=== PATIENT | female | born 1990 | race Caucasian/White ===

== ENCOUNTER 2022-10-07 19:00 | Emergency (ER) | payer OTHER, SELFPAY ==
[2022-10-07 19:07] VITALS: BP 137/73; PULSE 78; RESP 18; TEMP 36.9; O2SAT 97; BMI 32.1
--- NOTE | 2022-10-07 19:52 | CT_ITS ---
The [address] [address] Patient Name: KASSIE HEATON MRN: [id number] date: 1990 Sex: F Assigned Patient Location: ER Current Patient Location: Accession/Order Number: [id number] Exam Date: 10/07/2022 20:45 Report Date: 10/07/2022 21:17 At the request of: MIRI MARKER Procedure: CT abdomen pelvis w con HISTORY: Diarrhea, abdominal pain COMPARISON: None TECHNIQUE: CT Abdomen/Pelvis was performed with IV contrast. There was no immediate contrast reaction. Coronal and sagittal reformatted images were obtained. FINDINGS: Evaluation of the lung bases demonstrates no pneumothorax, pleural effusion, or focal consolidation. Mild dependent atelectasis. The visualized portions of the heart are unremarkable. Evaluation of the liver demonstrates no suspicious hepatic mass lesion. There is no intrahepatic biliary ductal dilation. Hepatic and portal veins are patent. The gallbladder is unremarkable. The common bile duct is normal in course and caliber. The spleen is normal. The pancreas demonstrates homogeneous parenchymal enhancement without evidence of ductal dilation or adjacent inflammatory change. The adrenal glands demonstrate no suspicious nodularity or mass lesion. The kidneys demonstrate symmetric nephrograms. There are 5 mm hypodensities in both kidneys, too small to fully characterize but likely represent renal cysts. There is no hydronephrosis. The ureters appear normal in course and caliber. The bladder is partially distended and otherwise unremarkable. Evaluation of the bowel demonstrates no obstruction or free air. The appendix and terminal ileum are normal. There is no focal bowel wall thickening. There is no significant free fluid within the abdomen or pelvis. There is an intrauterine device within the uterus. Both ovaries are within normal limits. Scattered colonic diverticuli. There is no mesenteric or retroperitoneal lymphadenopathy. The aorta and its branching vessels are within normal limits without evidence for aneurysm. There is no suspicious lytic or sclerotic bony lesion. Fat-containing umbilical hernia. Impression: No acute abdominal or pelvic findings. No free fluid. No inflammatory stranding. No bowel obstruction. Normal appendix. Scattered colonic diverticuli with no evidence for diverticulitis. Electronically authenticated by: ROGER NATHAN Date: 10/07/2022 21:17
--- NOTE | 2022-10-07 19:54 | ED_ITS ---
HPI - Abdominal Pain General Chief Complaint: Abdominal Pain Stated Complaint: DIARRHEA Time Seen by Provider: 10/07/22 19:43 Source: patient Mode of arrival: walk-in Limitations: no limitations History of Present Illness HPI narrative: This 32-year-old female presents for evaluation of diarrhea that started on Tuesday, 3 days ago as well as abdominal cramps. She is episodes of nausea but has not vomited. She has not had a fever. She states that Tuesday she had a lot of diarrhea all day and then on Tuesday it started to resolve, Tuesday she had cramps and diarrhea again and today she has had diarrhea with cramping and is no longer having diarrhea but is passing mucous with blood in it. She has not had a fever. She has not recently been on any antibiotics. She has not had a lot of the country. She has not been eating raw seafood or fishing and strains. She denies any chest pain or shortness of breath. She denies any urinary symptoms. She states the pain at times radiates into her low back. She did have a colonoscopy last December and had a benign polyp removed. MD elicited complaint: Reports abdominal pain Related Data Home Medications Medication Instructions Recorded Confirmed No Known Home Medications 10/07/22 10/07/22 Allergies Allergy/AdvReac Type Severity Reaction Status Date / Time acetaminophen [From Vicodin] Allergy Rash Verified 10/07/22 19:13 hydrocodone [From Vicodin] Allergy Rash Verified 10/07/22 19:13 Review of Systems ROS Status of ROS 10 or more systems reviewed and unremarkable except as noted in history and below [facility] Social History Smoking status: Current every day smoker Exam Constitutional Vital Signs - 24 hr 10/07/22 19:07 10/07/22 20:02 10/07/22 20:41 Temperature 98.5 F Pulse Rate [Monitor] 78 64 59 L Respiratory Rate 18 16 12 Blood Pressure [Left Arm] 137/73 H 120/72 H 108/69 Pulse Oximetry 97 98 100 Oxygen Delivery Method Room Air Room Air Room Air 10/07/22 21:16 Temperature Pulse Rate [Monitor] 66 Respiratory Rate 16 Blood Pressure [Left Arm] 116/62 Pulse Oximetry 99 Oxygen Delivery Method Room Air Documenting provider has reviewed patient's vital signs: yes (Vital signs reviewed and are normal) Common normals: no apparent distress, average body habitus and oriented x3 General appearance: cooperative, comfortable, well kempt and well developed HENMT Common normals: normocephalic and head/scalp atraumatic Head and scalp: normal to inspection Face and sinus: normal facial exam Mouth: oral and palatal mucosa normal Eye Common normals: EOMs intact bilaterally and conjunctivae normal Respiratory Common normals: normal respiratory effort, no retractions, no use of accessory muscles and clear to auscultation bilaterally Effort & inspection: able to speak in complete sentences Cardio Common normals: regular rate, regular rhythm, S1 normal heart sound, S2 normal heart sound, no gallops and no rub GI Common normals: Normal to inspection, nondistended, normoactive bowel sounds present, soft to palpation and non-tender (Left upper quadrant tenderness and tenderness in the left lower quadrant) Inspection: normal to inspection Auscultation: normoactive bowel sounds Palpation: soft and tender (Left upper quadrant and left lower quadrant) Back & Pelvis Common normals: no CVA tenderness, thoracic and lumbar spine normal to inspection, no thoracic nor lumbar tenderness and thoraco-lumbar ROM normal Extremity Common normals: normal to inspection, full ROM, normal capillary refill, no joint enlargement, no clubbing, cyanosis or edema, no calf tenderness and no pe lloyd edema Neuro Common normals: oriented x3, CN's II-XII intact bilaterally, moves all extremities, no focal motor deficits and no sensory deficits noted Psych Common normals: thought process normal and activity/motor behavior normal Course Reevaluation(s) Reevaluation #1: Patient reevaluated, she is feeling better, her nausea has resolved and her abdominal cramping has resolved. She has not had any additional episodes of diarrhea while in the emergency department. I signed her that her labs are normal. She does have a low potassium at 3.2 which will be treated at this time with 20 mEq of oral potassium. Time: 21:12 Vital Signs Vital signs: Vital Signs Temperature 98.5 F 10/07/22 19:07 Pulse Rate 78 10/07/22 19:07 Respiratory Rate 18 10/07/22 19:07 Blood Pressure 137/73 H 10/07/22 19:07 Pulse Oximetry 97 10/07/22 19:07 Oxygen Delivery Method Room Air 10/07/22 19:07 Temperature 98.5 F 10/07/22 19:07 Pulse Rate 66 10/07/22 21:16 Respiratory Rate 16 10/07/22 21:16 Blood Pressure 116/62 10/07/22 21:16 Pulse Oximetry 99 10/07/22 21:16 Oxygen Delivery Method Room Air 10/07/22 21:16 MDM - Abdominal Pain MDM Narrative Medical decision making narrative: This 32-year-old female with significant medical history who had a colonoscopy last December with removal of a benign polyp presents for evaluation of 3 days of intermittent diarrhea and abdominal cramps which ultimately ended with patient passing mucus with a small amount of blood in it. She has not had any fevers or chills. She has not had any recent travel. Her physical exam was benign with mild tenderness in the left upper quadrant and left lower quadrant. Routine labs are normal with the exception of a potassium of 3.2. She has a norm al white count and hemoglobin. She has a normal lactic acid and lipase. She was medicated emergency department with IV fluids, Toradol and Zofran. Her hypokalemia was treated with 20 mEq of by mouth potassium. On reevaluation she was feeling much better. CT scan of abdomen and pelvis with IV contrast was essentially benign with some small cysts in her kidneys bilaterally. The results of the CT scan were discussed with the patient and she was given a copy of the CT scan for her records. She feels comfortable for discharge. She'll be discharged home with prescription for Bentyl, Zofran, potassium and Flagyl. Differential Diagnosis Differential diagnosis: Likely abdominal pain, diverticulitis and other (Colitis) Lab Data Attestation: I reviewed the patient's lab results. Lab results narrative: Has a normal white count and hemoglobin. Electrolytes are normal with exception of a potassium at3.2. Lipase and lactic acid are normal. Labs: Lab Results 10/07/22 10/07/22 Range/Units 19:35 20:00 WBC 7.5 (4.0-11.0) 10^3/uL RBC 4.50 (4.20-5.40) 10^6/uL Hgb 13.5 (12.0-16.0) g/dL Hct 39.6 (36.0-48.0) % MCV 88.0 (81.0-99.0) fL MCH 30.0 (26.7-34.0) pg MCHC 34.1 (29.9-35.2) g/dL RDW 12.9 (11.0-15.0) % Plt Count 219 (150-450) 10^3/uL MPV 10.3 (9.5-13.5) fL Neut % (Auto) 65.8 (43.0-75.0) % Lymph % (Auto) 25.8 (20.5-60.0) % Gillespie % (Auto) 6.1 (1.7-12.0) % Eos % (Auto) 1.7 (0.9-7.0) % Baso % (Auto) 0.5 (0.2-2.0) % Neut # (Auto) 4.9 (1.4-6.5) 10^3/uL Lymph # (Auto) 1.9 (1.2-3.8) 10^3/uL Gillespie # (Auto) 0.5 (0.3-0.8) 10^3/uL Eos # (Auto) 0.1 (0.0-0.7) 10^3/uL Baso # (Auto) 0.0 (0.0-0.1) 10^3/uL Abs Immat Gran (auto) 0.01 (0.00-0.03) 10^3/uL Imm/Tot Granulo (auto) 0.1 (0.0-0.5) % Sodium 139 (136-145) mmol/L Potassium 3.2 L (3.5-5.1) mmol/L Chloride 105 (98-107) mmol/L Carbon Dioxide 25.5 (21.0-32.0) mmol/L Anion Gap 11.7 BUN 19.0 H (7.0-18.0) mg/dL Creatinine 1.06 H (0.55-1.02) mg/dL Est GFR ( Amer) >60 (>=60) Est GFR (Non-Af Amer) 60 (>=60) BUN/Creatinine Ratio 17.9 Glucose 114 H (74-106) mg/dL Lactate 1.3 (0.4-2.0) mmol/L Calcium 8.7 (8.5-10.1) mg/dL Total Bilirubin 0.3 (0.2-1.0) mg/dL AST 27 (15-37) U/L ALT 16 (14-59) U/L Alkaline Phosphatase 90 (46-116) U/L Total Protein 7.2 (6.4-8.2) g/dL Albumin 3.8 (3.4-5.0) g/dL Globulin 3.4 g/dL Albumin/Globulin Ratio 1.1 Lipase 151.0 (73.0-393.0) U/L Imaging Data CT scan - abdomen: Radiologist's impression: No acute findings in the abdomen or pelvis Discharge Plan Discharge Chief Complaint: Abdominal Pain Clinical Impression: Colitis, Diarrhea Patient Disposition: Home, Self-Care Time of Disposition Decision: 21:52 Condition: Good Prescriptions / Home Meds: No Action No Known Home Medications Print Language: Eritre[place] Instructions: Acute Diarrhea (ED), Colitis (ED) Stand Alone Forms: Portal Instructions Referrals: GUEVARA AVALOS [Primary Care Provider] - 1 week
[2022-10-07 20:02] VITALS: BP 120/72; PULSE 64; RESP 16; O2SAT 98
[2022-10-07 20:02] LABS: Basophils Percent Auto 0.5 % (0.2-2.0); Eosinophils Absolute Auto 0.1 10^3/uL (0.0-0.7); Eosinophils Percent Auto 1.7 % (0.9-7.0); Hematocrit 39.6 % (36.0-48.0); Hemoglobin 13.5 g/dL (12.0-16.0); Immature Granulocytes Abs Auto 0.01 10^3/uL (0.00-0.03); Immature Granulocytes Pct Auto 0.1 % (0.0-0.5); Lymphocytes Absolute Auto 1.9 10^3/uL (1.2-3.8); Lymphocytes Percent Auto 25.8 % (20.5-60.0); Mean Corpuscular HGB Conc 34.1 g/dL (29.9-35.2); Mean Platelet Volume 10.3 fL (9.5-13.5); Monocytes Absolute Auto 0.5 10^3/uL (0.3-0.8); Monocytes Percent Auto 6.1 % (1.7-12.0); Neutrophils Absolute Auto 4.9 10^3/uL (1.4-6.5); Neutrophils Percent Auto 65.8 % (43.0-75.0); Platelet Count 219 10^3/uL (150-450); Red Cell Distribution Width 12.9 % (11.0-15.0); White Blood Count 7.5 10^3/uL (4.0-11.0)
[2022-10-07 20:13] LABS: Alanine Aminotransferase 16 U/L (14-59); Albumin Globulin Ratio 1.1; Albumin Level 3.8 g/dL (3.4-5.0); Alkaline Phosphatase 90 U/L (46-116); Anion Gap 11.7; Aspartate Amino Transferase 27 U/L (15-37); BUN Creatinine Ratio 17.9; Bilirubin Total 0.3 mg/dL (0.2-1.0); Calcium 8.7 mg/dL (8.5-10.1); Carbon Dioxide 25.5 mmol/L (21.0-32.0); Chloride 105 mmol/L (98-107); Estimated GFR (African America >60 (>=60); Estimated GFR (Non-African Ame 60 (>=60); Globulin 3.4 g/dL; Glucose 114 mg/dL (74-106); Potassium 3.2 mmol/L (3.5-5.1); Sodium 139 mmol/L (136-145); Total Protein 7.2 g/dL (6.4-8.2)
[2022-10-07 20:25] LABS: Lactate/Lactic Acid 1.3 mmol/L (0.4-2.0)
[2022-10-07] MEDS: 0.9 % SODIUM CHLORIDE 1,000 ML 100 ML IV (20:28)
[2022-10-07] MEDS: KETOROLAC TROMETHAMINE 30 MG/ML VIAL IVP (20:29)
[2022-10-07] MEDS: ONDANSETRON PF 4 MG/2 ML VIAL IV (20:29)
[2022-10-07 20:41] VITALS: BP 108/69; PULSE 59; RESP 12; O2SAT 100
[2022-10-07 21:16] VITALS: BP 116/62; PULSE 66; RESP 16; O2SAT 99
[2022-10-07] MEDS: POTASSIUM CHLORIDE 10 MEQ ER TABLET 20 MEQ PO (22:07)
[2022-10-07] MEDS: DICYCLOMINE HCL 10 MG CAPSULE 20 MG PO (22:34)
[2022-10-07] MEDS: METRONIDAZOLE 250 MG TABLET 500 MG PO (22:34)
== END 2022-10-07 22:44 | disposition home or self-care (01) ==
PROVIDERS: Emergency Provider Emergency Medicine; PCP Family Medicine
DX: K52.9 Noninfective gastroenteritis and colitis, unspecified (principal); F17.210 Nicotine dependence, cigarettes, uncomplicated
CPT/HCPCS: 36415; 74177; 80053; 83605; 83690; 85025; 96361; 96374; 96375; 99285; Q9967

== ENCOUNTER 2023-02-14 09:45 | Outpatient (REF) | payer OTHER, SELFPAY ==
[2023-02-21 07:31] LABS: Pap IG (Image Guided) Note (.)
== END 2023-02-14 09:46 | disposition home or self-care (01) ==
LOC: LAB 09:45
PROVIDERS: PCP Family Medicine; Visit Provider Obstetrics & Gynecology
DX: R87.613 High grade squamous intraepithelial lesion on cytologic smear of cervix (HGSIL) (principal)
CPT/HCPCS: 87624; G0145

== ENCOUNTER 2023-08-15 21:16 | Outpatient (REF) | payer OTHER, SELFPAY ==
--- OUTSIDE RECORDS SUMMARY | 2023-08-15 21:31 | XMS_ITS | CCD ---
Author Organization [facility] Care Team Providers Care System Designer Name Role Phone MD Jayden Moreau Attending Provider MD Lowell [facility] Care Provider Jayden Moreau Admitting Unavailable Jayden Moreau Attending Unavailable Abby Etienne [facility] Care Unavailable EUGENIO ., DR KUMAR Admitting Unavailable EUGENIO ., DR KUMAR Attending Unavailable EUGENIO ., DR KUMAR Admitting Unavailable EUGENIO ., DR KUMAR Attending Unavailable EUGENIO ., DR KUMAR Consulting Unavailable ANASTASIYA PITTS Consulting Unavailable ANGIE ALMONTE Consulting Unavailable EUGENIO ., DR KUMAR Admitting Unavailable EUGENIO ., DR KUMAR Attending Unavailable EUGENIO ., DR KUMAR Consulting Unavailable Lowell DUMONT, [facility] Primary Care Provider [phone] Cat Salguero NP Unavailable SUSANA DAWN Attending Unavailable CAT SALGUERO Attending Unavailable SUSANA DAWN Attending Unavailable SUSANA DAWN Attending Unavailable SUSANA DAWN Attending Unavailable Allergies Allergy Classification Reported Allergen(s) Allergy Type Date of Onset Reaction(s) Facility (2 sources) Acetaminophen; Translations: [acetaminophen] Drug Allergy 02-16-2022 [facility] (2 sources) HYDROcodone; Translations: [hydrocodone] Drug Allergy 02-16-2022 [facility] (1 source) Acetaminophen / HYDROcodone Drug Allergy 06-03-2014 [facility] (1 source) Acetaminophen / HYDROcodone Drug Allergy [facility] Medications Current Medications Medication Drug Class(es) Dates Sig (Normalized) Sig (Original) levonorgestrel 0.006443 mg/hr intrauterine system (4 sources) Progestin, Progestin-containing Intrauterine Device Levonorgestrel (Mirena, 52 MG,) 20 MCG/DAY intrauterine device Mirena 0 Active 24 hr metFORMIN hydrochloride 500 mg extended release oral tablet (4 sources) Biguanide Start: 02-14-2023 End: 02-14-2024 take 1 tablet by mouth every twenty-four hours at mealtime metFORMIN XR (Glucophage-XR) 500 MG 24 hr tablet Indications: Encounter for weight management Take 1 tablet (500 mg) by mouth in the evening. Take with meals. Do not crush, chew, or split. 30 tablet 11 02/14/2023 02/14/2024 Active phentermine hydrochloride 37.5 mg oral tablet (6 sources) Sympathomimetic Amine Anorectic Start: 05-30-2023 End: 06-29-2023 take 1 tablet by mouth before mealtime phentermine (Adipex-P) 37.5 MG tablet Indications: Encounter for weight management Take 1 tablet (37.5 mg) by mouth in the morning. Take before meals. 30 tablet 0 05/30/2023 06/29/2023 Active Start: 04-25-2023 End: 05-25-2023 take 1 tablet by mouth before mealtime phentermine (Adipex-P) 37.5 MG tablet Indications: Encounter for weight management Take 1 tablet (37.5 mg) by mouth in the morning. Take before meals. 30 tablet 0 04/25/2023 Active 24 hr venlafaxine 150 mg extended release oral capsule (1 source) Serotonin and Norepinephrine Reuptake Inhibitor Start: 02-16-2022 take 150 mg by mouth once daily Venlafaxine Active 150 MG PO Daily February 16, 2022 12:00am Completed/Discontinued Medications Medication Drug Class(es) Dates Sig (Normalized) Sig (Original) cephalexin 500 mg oral capsule (2 sources) Cephalosporin Antibacterial Start: 07-13-2017 End: 02-16-2022 take 500 mg by mouth three times daily Cephalexin Discontinued 500 MG PO Three times daily July 13, 2017 12:00am February 16, 2022 1:35pm escitalopram 10 mg oral tablet (1 source) Serotonin Reuptake Inhibitor Start: 07-13-2017 End: 02-16-2022 take 1 tablet by mouth once daily Escitalopram Oxalate (Lexapro) 10 mg Tablet Discontinued 10 MG PO Daily July 13, 2017 12:00am February 16, 2022 1:35pm Problems Active Problems Problem Classification Problem Date Documented Date Episodic/Chronic Adjustment disorders (4 sources) Adjustment disorder with depressed mood; Translations: [Adjustment disorder with depressed mood] Onset: 02-24-2021 10-07-2022 Chronic Administrative/socia l admission (2 sources) Patient encounter status; Translations: [Persons encountering health services in other specified circumstances] 05-30-2023 Episodic Anxiety disorders (8 sources) Fear of flying; Translations: [Fear of flying] Onset: 07-15-2017 10-07-2022 Chronic Cancer of cervix (1 source) 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); Translations: [HGSIL ON CYTOLOGIC SMEAR OF CERVIX] Onset: 08-01-2022 Episodic Esophageal disorders (4 sources) Gastroesophageal reflux disease without esophagitis; Translations: [Gastro-esophageal reflux disease without esophagitis] Onset: 10-07-2022 10-07-2022 Chronic Immunizations and screening for infectious disease (1 source) Encounter for screening for human papillomavirus (HPV); Translations: [ENC SCREENING HUMAN PAPILLOMAVIRUS] Onset: 05-25-2022 Episodic Miscellaneous mental health disorders (4 sources) Primary insomnia; Translations: [Primary insomnia] Onset: 04-25-2019 11-01-2022 Chronic Other screening for suspected conditions (not mental disorders or infectious disease) (4 sources) Encounter for screening for malignant neoplasm of cervix; Translations: [ENC SCREENING MALIG NEOPLASM CERV] Onset: 05-24-2022 Episodic Other upper respiratory infections (1 source) Viral upper respiratory tract infection; Translations: [Acute upper respiratory infection, unspecified] 05-24-2023 Episodic Substance-related disorders (4 sources) Nicotine dependence; Translations: [Nicotine dependence, cigarettes, uncomplicated] Onset: 10-07-2022 10-07-2022 Chronic Unclassified (1 source) Hemorrhage of anus and rectum; Translations: [Hemorrhage of anus and rectum] Onset: 02-18-2022 Past or Other Problems Problem Classification Problem Date Documented Da te Episodic/Chronic Deficiency and other anemia (4 sources) Anemia; Translations: [Anemia, unspecified] Onset: 10-07-2022 10-07-2022 Episodic Results Test Name Value Interpretation Reference Range Facility CBC AUTO DIFFon 07-30-2022 BASO # 0.0 103/ul Normal 0.0-0.1 [facility] Comment on above: Performed By: #### C BC #### [facility] [address] [place] [address] Dr. Hayley Kat Basophils/100 WBC (Bld) 0.5 % Normal 0.2-2.0 [facility] Comment on above: Performed By: #### C BC #### [facility] [address] [place] [address] Dr. Hayley Kat EO # 0.3 103/ul Normal 0.0-0.7 [facility] Comment on above: Performed By: #### C BC #### [facility] [address] [place] [address] Dr. Hayley Kat Eosinophils/100 WBC (Bld) 3.6 % Normal 0.9-7.0 [facility] Comment on above: Performed By: #### C BC #### [facility] [address] [place] [address] Dr. Hayley Kat Erythrocyte distribution width (RBC) [Ratio] 12.9 % Normal 11.0-15.0 [facility] Comment on above: Performed By: #### C BC #### [facility] [address] [place] [address] Dr. Hayley Kat Hematocrit (Bld) [Volume fraction] 40.7 % Normal 36.0-48.0 [facility] Comment on above: Performed By: #### C BC #### [facility] [address] [place] [address] Dr. Hayley Kat Hemoglobin (Bld) [Mass/Vol] 13.4 g/dL Normal 12.0-16.0 [facility] Comment on above: Performed By: #### C BC #### [facility] [address] [place] [address] Dr. Hayley Kat IG # 0.01 10e3/ul Normal 0.00-0.03 [facility] Comment on above: Performed By: #### C BC #### [facility] [address] [place] [address] Dr. Hayley Kat IG % 0.1 % Normal 0.0-0.5 [facility] Comment on above: Performed By: #### C BC #### [facility] [address] [place] [address] Dr. Hayley Kat LYMPH # 2.2 103/ul Normal 1.2-3.8 [facility] Comment on above: Performed By: #### C BC #### [facility] [address] [place] [address] Dr. Hayley Kat Lymphocytes/100 WBC (Bld) 28.3 % Normal 20.5-60.0 [facility] Comment on above: Performed By: #### C BC #### [facility] [address] [place] [address] Dr. Hayley Kat MANUAL DIFF REQ NO Normal [facility] Comment on above: Performed By: #### C BC #### [facility] [address] [place] [address] Dr. Hayley Kat MCH (RBC) [Entitic mass] 29.1 pg Normal 26.7-34.0 [facility] Comment on above: Performed By: #### C BC #### [facility] [address] [place] [address] Dr. Hayley Kat MCHC (RBC) [Mass/Vol] 32.9 g/dL Normal 29.9-35.2 [facility] Comment on above: Performed By: #### C BC #### [facility] [address] [place] [address] Dr. Hayley Kat MCV (RBC) [Entitic vol] 88.3 fL Normal 81.0-99.0 [facility] Comment on above: Performed By: #### C BC #### [facility] [address] [place] [address] Dr. Hayley Kat MONO # 0.5 103/ul Normal 0.3-0.8 [facility] Comment on above: Performed By: #### C BC #### [facility] [address] [place] [address] Dr. Hayley Kat Monocytes/100 WBC (Bld) 6.3 % Normal 1.7-12.0 [facility] Comment on above: Performed By: #### C BC #### [facility] [address] [place] [address] Dr. Hayley Kat NEUT # 4.7 103/ul Normal 1.4-6.5 [facility] Comment on above: Performed By: #### C BC #### [facility] [address] [place] [address] Dr. Hayley Kat Neutrophils/100 WBC (Bld) 61.2 % Normal 43.0-75.0 [facility] Comment on above: Performed By: #### C BC #### [facility] [address] [place] [address] Dr. Hayley Kat Platelet mean volume (Bld) [Entitic vol] 9.6 fL Normal 9.5-13.5 [facility] Comment on above: Performed By: #### C BC #### [facility] [address] [place] [address] Dr. Hayley Kat PLT 230 103/ul Normal 150-450 [facility] Comment on above: Performed By: #### C BC #### [facility] [address] [place] [address] Dr. Hayley Kat RBC 4.61 106/ul Normal 4.20-5.40 [facility] Comment on above: Performed By: #### C BC #### [facility] [address] [place] [address] Dr. Hayley Kat WBC 7.7 103/ul Normal 4.0-11.0 [facility] Comment on above: Performed By: #### C BC #### [facility] [address] [place] [address] Dr. Hayley Kat PREG QUANT HCGon 07-30-2022 HCG QUANT <1 Normal [facility] Comment on above: Performed By: #### P REGQNT #### [facility] [address] [place] [address] Dr. Hayley Kat HCG RANGE SEE BELOW Normal [facility] Comment on above: Result Comment: 5-50 0.2-1 WEEK 50-500 1-2 WEEKS 100-5,000 2-3 WEEKS 500-10,000 3-4 WEEKS 1,000-50,000 4-5 WEEKS 10,000-100,000 5-6 WEEKS 15,000-200,000 6-8 WEEKS 10,000-100,000 2-3 MONTHS Performed By: #### P REGQNT #### [facility] [address] [place] [address] Dr. Hayley Kat PAP ACOG PANEL 2: 30 to 65on 06-01-2022 . . Normal [facility] Comment on above: Result Comment: Perf ormed at: WB Performed By: #### [id number] #### [facility] [address] [place] [address] Dr. Hayley Kat Age Gdln ACOG Testing 30-65 Normal [facility] Comment on above: Performed By: #### [id number] #### [facility] [address] [place] [address] Dr. Hayley Kat DIAGNOSIS: Comment Abnormal [facility] Comment on above: Result Comment: EPIT HELIAL CELL ABNORMALITY. HIGH-GRADE SQUAMOUS INTRAEPITHELIAL LESION (HSIL). Performed at: WB Performed By: #### [id number] #### [facility] [address] [place] [address] Dr. Hayley Kat Electronically signed by: Comment Normal [facility] Comment on above: Result Comment: Tone Cruz MD, Pathologist Performed at: WB Performed By: #### [id number] #### [facility] [address] [place] [address] Dr. Hayley Kat HPV Aptima Positive Abnormal Negative [facility] Comment on above: Result Comment: This nucleic acid amplification test detects fourteen high-risk HPV types (16,18,31,33,35,39,45,51,52,56,58,59,66,68) without differentiation. Performed at: =G Performed By: #### [id number] #### [facility] [address] [place] [address] Dr. Hayley Kat HPV Genotype Reflex Comment Normal [facility] Comment on above: Result Comment: Crit eria not met, HPV Genotype not performed. Performed at: WB Performed By: #### [id number] #### [facility] [address] [place] [address] Dr. Hayley Kat Methodology: Comment [facility] Comment on above: Result Comment: This liquid based ThinPrep(R) pap test was screened with the use of an image guided system. Performed at: WB Performed By: #### [id number] #### [facility] [address] [place] [address] Dr. Hayley Kat Note: Comment [facility] Comment on above: Result Comment: The Pap smear is a screening test designed to aid in the detection of premalignant and malignant conditions of the uterine cervix. It is not a diagnostic procedure and should not be used as the sole means of detecting cervical cancer. Both false-positive and false-negative reports do occur. . Performed at: WB Performed By: #### [id number] #### [facility] [address] [place] [address] Dr. Hayley Kat Pathologist Provided ICD10 Comment [facility] Comment on above: Result Comment: [id number] Performed at: WB Performed By: #### [id number] #### [facility] [address] [place] [address] Dr. Hayley Kat Performed by: Comment Normal [facility] Comment on above: Result Comment: Mary Starks, Oil Operator (ASCP) Performed at: WB Performed By: #### [id number] #### [facility] [address] [place] [address] Dr. Hayley Kat Specimen adequacy: Comment Normal [facility] Comment on above: Result Comment: Sati sfactory for evaluation. Endocervical and/or squamous metaplastic cells (endocervical component) are present. Performed at: WB Performed By: #### [id number] #### [facility] [address] [place] [address] Dr. Hayley Kat HCG ( test) IA.rapi d Ql (U)Ordered By: Jayden Moreau on 02-18-2022 HCG ( test) Ql (U) Negative [facility] HCG,Urineon 02-18-2022 Beta HCG ( test) Ql (U) Negative Normal [facility] Comment on above: Result Comment: PERF ORMED BY: [address] [id number] PATHOLOGIST DENTAL APPLIANCE MECHANIC JOSELUIS BERG M.D. Performed By: #### U HCG #### [place] [id number] [facility] [[email or web address]] Rocky 02-18-2022 L - -------- Specimen: [id number] Received: 02/18/22 Status: ELOISA Harrison Num: [id number] Spec Type: Surgical Subm Dr: Jayden Moreau MD Tissues: A Colon - Polyp (SIGMOID POLYP) Procedures: SUSY/Aj Jo/Mitul L4 -------- Age/ Patient Sex Location Account Attending Physician -------- Georgette Luna 31/F [id number] Jayden Moreau MD -------- SPEC NUM: [id number] RECD: 02/18/22 STATUS: ARLENEFernanda HARRISON NUM: [id number] TYRON: 02/18/[address] [facility] [address]: Jayden Moreau MD ENTERED: 02/18/[address] [facility] [address]: BEAU TYPE: Surgical DEPT: S ORDERED: HE/2, Gross/Micro L4 ORDERED: HE/2, Gross/Micro L4 Pathological Diagnosis Colon, sigmoid, polypectomy: - Tubulovillous adenoma. Clinical Information Rectal bleeding Gross Description Received in formalin labeled with the patient's name, number and sigmoid polyp is a 1.6 x 1.0 x 0.5 cm mcbride red polypoid and pedunculated tissue which is inked at the base and bisected. Entirely submitted in one cassette labeled A1. Microscopic Description Two glass slides with H E stained material have been examined. The microscopic findings support the above pathologic diagnosis. CPT Codes 85563 -------- -------- Specimen: [id number] Received: 02/18/22 Status: SOUFernanda Harrison Num: [id number] Spec Type: Surgical Subm Dr: Jayden Moreau MD Tissues: A Colon - Polyp (SIGMOID POLYP) Procedures: HE/2, Gross/Micro L4 -------- Patient: Georgette Luna [id number] (Continued) -------- Signed (signature on file) Reji Han MD 02/19/22 0917 [facility] XR Foot Complete Left*on XR Foot Complete Left* FINDINGS: Very mild posterior calcaneal sclerosis, possible stress fracture if clinically suspect. No significant spur formation or erosive changes. Normal subtalar joint and Bohler's angle. No cortical or stress fracture within the metatarsal bones or phalanges. IMPRESSION: 1. Subtle calcaneal findings my reflect stress fracture if clinically suspect. 2. No cortical fracture. Report reported and signed by Mauro Avila on 02/11/2022 0725 Normal [facility] Relay Tester US Pelvic, Transvaginalon US Pelvic, Transvaginal FINDINGS: Transabdominal and transvaginal imaging was performed. Uterus 8.9 x 6.0 x 4.9 cm Endometrium 2 mm IUD Right Ovary2.9 x 2.2 x 2.2 cm Left Ovary3.1 x 1.5 x 1.8 cm Normal uterine orientation and morphology. Normal myometrium. Appropriately positioned intrauterine device with a very small amount of endometrial fluid surrounding the intrauterine device, body and fundus. No focal endometrial mass. No pelvic fluid. Subcentimeter bilateral ovarian follicles. IMPRESSION: 1. Appropriately positioned intrauterine device, small amount of neighoring fluid. Report reported and signed by Mauro Avila on 12/10/2021 1606 Normal [facility] Relay Tester XR Abdomen Single View (KUB) *on 10-14-2021 XR Abdomen Single View (KUB)* FINDINGS: Moderate volume of ascending and transverse colon stool. No mass effect, free air, or evidence of bowel obstruction. No biliary or urinary tract stones. Bilateral pelvic phleboliths. IUD noted. Unremarkable skeletal structures. IMPRESSION: Moderate volume of proximal colon stool, no obstruction Report reported and signed by Mauro Avila on 10/15/2021 0705 Normal [facility] Relay Tester XR Sacrum/Coccyxon 2 XR Sacrum/Coccyx HISTORY: Tailbone pain, fall (24 hours) FINDINGS: Intact pelvic ring. Normal sacral struts. Mild kyphotic angulation within the mid coccygeal region without cortical disruption. Very subtle angulation of the distal coccygeal anterior cortex may represent a nondisplaced fracture if symptomatic. No significant presacral hematoma. Normal lumbosacral alignment. Normal SI joints. IUD. IMPRESSION: Distal coccygeal findings, possible minimally angulated fracture if localizing symptoms are present. Report reported and signed by Mauro Avila on 09/01/2021 1440 Normal [facility] Specialist Vital Signs Date Time Vital Sign Value Performing Clinician Facility 05-30-2023 09:11-0500 Body mass index (BMI) [Ratio] 29.13 kg/m2 Susana MESSER Work Phone: [facility] 05-30-2023 09:11-0500 Body weight 84.37 kg Susana MESSER Work Phone: [facility] 05-30-2023 09:11-0500 Diastolic blood pressure 70 mm[Hg] Susana MESSER Work Phone: [facility] 05-30-2023 09:11-0500 Systolic blood pressure 116 mm[Hg] Susana MESSER Work Phone: [facility] 05-24-2023 16:22-0500 Body height 170.2 cm Cat Salguero REPEATER OPERATOR Work Phone: [facility] 05-24-2023 16:22-0500 Body mass index (BMI) [Ratio] 28.98 kg/m2 Cat Salguero REPEATER OPERATOR Work Phone: [facility] 05-24-2023 16:22-0500 Body temperature 98.6 [degF] Cat Salguero REPEATER OPERATOR Work Phone: [facility] 05-24-2023 16:22-0500 Body weight 83.92 kg Cat Salguero REPEATER OPERATOR Work Phone: [facility] 05-24-2023 16:22-0500 Diastolic blood pressure 68 mm[Hg] Cat Salguero REPEATER OPERATOR Work Phone: [facility] 05-24-2023 16:22-0500 Heart rate 88 /min Cat Salguero REPEATER OPERATOR Work Phone: [facility] 05-24-2023 16:22-0500 Respiratory rate 18 /min Cat Salguero REPEATER OPERATOR Work Phone: [facility] 05-24-2023 16:22-0500 SaO2% (BldA) [Mass fraction] 98 % Cat Salguero REPEATER OPERATOR Work Phone: [facility] 05-24-2023 16:22-0500 Systolic blood pressure 120 mm[Hg] Cat Salguero REPEATER OPERATOR Work Phone: [facility] 02-18-2022 10:45-0400 Diastolic blood pressure 65 mm[Hg] MD Abby Etienne Work Phone: [facility] 02-18-2022 10:45-0400 Heart rate 74 /min MD Abby Etienne Work Phone: [facility] 02-18-2022 10:45-0400 SaO2% (BldA) [Mass fraction] 100 % MD Abby Etienne Work Phone: [facility] 02-18-2022 10:45-0400 Systolic blood pressure 112 mm[Hg] MD Abby Etienne Work Phone: [facility] 02-18-2022 08:52-0400 Body height 170.18 cm MD Abby Etienne Work Phone: [facility] 02-18-2022 08:52-0400 Body temperature 98 [degF] MD Abby Etienne Work Phone: [facility] 02-18-2022 08:52-0400 Body weight 86.18 kg MD Abby Etienne Work Phone: [facility] 02-18-2022 08:52-0400 Respiratory rate 16 /min MD Abby Etienne Work Phone: [facility] Encounters Encounter Date Encounter Type Care Provider Facility Start: 07-11-2023 End: 07-11-2023 ambulatory SUSANA DAWN Not Available Start: 05-30-2023 End: 05-30-2023 ambulatory SUSANA LÓPEZ Not Available Start: 05-30-2023 End: 05-30-2023 Office outpatient visit 15 minutes Susana Dawn PA Work Phone: [facility] Comment on above: Encounter for weight management Start: 05-24-2023 End: 05-25-2023 ambulatory CAT SALGUERO Not Available Start: 05-24-2023 End: 05-24-2023 Patient encounter status Cat Salguero REPEATER OPERATOR Work Phone: [facility] Work Phone: Start: 05-24-2023 End: 05-24-2023 Periodic preventive med est patient 18-39 yrs Cat Salguero REPEATER OPERATOR Work Phone: [facility] Comment on above: Well adult exam (Fabiola clark Dx); Viral upper respiratory tract infection Start: 05-24-2023 Bamboo flowsheet Cat Salguero REPEATER OPERATOR Work Phone: [facility] Start: 05-24-2023 Bamboo flowsheet Cat Salguero REPEATER OPERATOR Work Phone: [facility] Start: 04-25-2023 End: 04-25-2023 ambulatory SUSANA DAWN Not Available Start: 03-21-2023 End: 03-21-2023 ambulatory SUSANA LÓPEZ Not Available Start: 08-01-2022 Encounter for other preprocedural examination DR JOSÉ GARCIA . [facility] Start: 07-30-2022 End: 07-30-[address] JOSÉ GARCIA . Facility:[facility] Start: 07-23-2022 End: 07-24-[address] JOSÉ GARCIA . Facility:[facility] Start: 07-23-2022 End: 07-24-2022 Encounter for other preprocedural examination DR JOSÉ GARCIA . Facility:[facility] Start: 05-24-2022 End: 05-24-[address] JOSÉ GARCIA . Facility:[facility] Start: 02-18-2022 End: 02-18-2022 ambulatory Jayden Moreau Facility:[facility] Start: 02-18-2022 End: 02-18-2022 Admission to same day surgery center MD Abby Etienne Work Phone: [facility] Start: 02-18-2022 End: 02-18-2022 ambulatory MD Abby Etienne Work Phone: [facility] [facility] Work Phone: Procedures Date Procedure Procedure Detail Performing Clinician Start: 02-14-2023 Microscopic observat ion [Identifier] in Cervix by Cyto stain Cat Salguero NP Work Phone: Start: 02-18-2022 Colonoscopy MD Abby chan Work Phone: Plan of Treatment Date Care Activity Detail Author Start: 02-15-2028 Screening for malign ant neoplasm of cervix [facility] Start: 06-27-2023 End: 06-27-2023 Patient encounter procedure 06/27/2023 11:30 AM EDT Office Visit [facility] [address] [place] [id number] Susana Dawn PA [address] [place] [address] [facility] Start: 06-13-2023 End: 06-13-2023 Patient encounter procedure 06/13/2023 9:30 AM EST Procedure Visit [facility] [address] [place] [id number] José Garcia, [address] [place] [address] [facility] Start: 05-24-2023 End: 05-24-2023 Patient encounter procedure 05/24/2023 4:30 PM EST Office Visit [facility] [address] [place] [address] Cat Salguero NP [address] [place], [place] [id number] Arrived [facility] Comment on above: Arrived Start: 05-24-2023 End: 05-24-2024 Glucose measurement, fasting Glucose, fasting Lab Routine Well adult exam Expected: 05/24/2023 (Approximate), Expires: 05/24/2024 [facility] Work Phone: Comment on above: Expected: 05/24/2023 (Approximate), Expires: 05/24/2024 Start: 05-24-2023 End: 05-24-2024 Lipid 1996 panel - Serum or Plasma Lipid panel Lab Routine Well adult exam Expected: 05/24/2023 (Approximate), Expires: 05/24/2024 [facility] Comment on above: Expected: 05/24/2023 (Approximate), Expires: 05/24/2024 Start: 12-17-2022 Influenza vaccination Influenza Vacc ine (#1) [facility] Start: 02-18-2022 [facility] Patient Education Colon Polypectomy (DC) [facility] Work Phone: Immunizations Immunization Date Immunization Notes Care Provider Fa [facility] 03-08-2016 influenza virus vacc ine, unspecified formulation Cat Salguero NP Work Phone: [facility] Payers Date Payer Category Payer Private Health Insurance [facility] [id number] 2023-Present [address] [address] [place] [address] [id number] 2023 Private Health Insurance [id number] 2021 Self-pay [id number] 1989 Unknown [id number] 1989 Unknown [id number] 593 1989 Unknown [id number] 593 1989 Unknown [id number]. 9 1989 Unknown [id number]. 9 1989 Unknown [id number]. 9 1989 Unknown [id number]. 9 1989 Unknown [id number]. 1259 1960 Medicaid [id number] Unknown [id number] 531 Social History Date Type Detail Facility Start: 02-18-2022 Tobacco smoking status [facility] Smoker (finding) [facility] Start: 1990 Sex Assigned At Female [facility] Start: 10-19-2022 Tobacco smoking status [facility] Ex-smoker [facility] History of tobacco use Cigarette Smoker [facility] Start: 10-19-2022 Tobacco use and exposure Smokeless tobacco non-user [facility] Start: 04-25-2023 End: 05-30-2023 Alcohol intake Current drinker of alcohol (finding) [facility] Start: 04-25-2023 End: 05-24-2023 Alcohol intake [facility] Start: 03-09-2023 End: 05-24-2023 Alcohol Use Disorder Identification Test - Consumption [AUDIT-C] [facility] How often to you hav e a drink containing alcohol? 4 or more times a week [facility] How many standard dr inks containing alcohol do you have on a typical day? 1 or 2 [facility] How often do you hav e 6 or more drinks on 1 occasion? Never [facility] Start: 10-19-2022 Tobacco Comment Last smoked: <1 month [facility] Start: 01-13-2023 Alcohol Comment caffeine: 1-2 cups per day coffee [facility] Start: 1990 Sex Assigned At Not on file [facility] Goals Date Patient Goal Desired Activity /State History of Present illness Narrative 05-30-2023 GUI Bah - 05/30/2023 8:50 AM EST Note Date & Type Note Facility 05-30-2023 History of Presen t illness Narrative Reason for Appointment: Patient ID: Georgette Luna is a 32 y.o. female who presents for Weight Management Patient presents today for a weight management consultation. Patient has been prescribed Adipex and she is here for her 4th prescription. Today's Vitals: Estimated body mass index is 29.13 kg/m as calculated from the following: Height as of 05/24/23: 5' 7 . Weight as of this encounter: 186 lb. Previous Weight/BMI: Wt Readings from Last 3 Encounters: 05/30/23 186 lb 05/24/23 185 lb 04/25/23 185 lb 12.8 oz BMI Readings from Last 3 Encounters: 05/30/23 29.13 kg/m 05/24/23 28.98 kg/m 04/25/23 29.10 kg/m Allergies as of 05/30/2023 - Reviewed 05/30/2023 Allergen Reaction Noted Hydrocodone-acetaminophen Unknown 12/27/2018 Past Medical History: Diagnosis Date Anemia Anxiety BMI 29.0-29.9,adult Contraceptive device, intrauterine Depression screening Pseudoaneurysm (CMS/HCC) Thyroglossal duct cyst Well woman exam Past Surgical History: Procedure Laterality Date DILATION AND CURETTAGE OF UTERUS MASS EXCISION 07/27/2017 midline neck OTHER SURGICAL HISTORY 05/2014 uterine aneurysm, foam Review of Systems: Review of Systems Objective OBGyn Exam Assessment/Plan Encounter Diagnosis Name Primary? Encounter for weight management Patient presents today for 3rd Adipex prescription. Patient desires additional weigh loss and she is currently taking metformin along with working out to achieve further results. Weight and blood pressure has been captured and I have discussed/reiterated the importance of keeping a food journal, proper nutrition/diet, and exercise regimen. Patient verbalized understanding. Patient has lost more than 5% of her initial body weight Follow Up: Pt will follow up in one month for 5th prescription Documented by: GUI Bah on behalf of GUI Bah documented in this encounter [facility] History of Present illness Narrative 05-24-2023 Cat Salguero NP - 05/24/2023 4:30 PM EST Note Date & Type Note Facility 05-24-2023 History of Presen t illness Narrative Georgette Luna is a 32 y.o. female presents with chief complaint of Annual Exam HPI: Well Adult Physical Patient here for a comprehensive physical exam.The patient reports problems - Sore Throat and Congestion. Do you take any herbs or supplements that were not prescribed by a doctor? no Are you taking calcium supplements? no Are you taking aspirin daily? no SUBJECTIVE: MEDICATIONS: ALLERGIES Current Outpatient Medications Medication Instructions Levonorgestrel (Mirena, 52 MG,) 20 MCG/DAY intrauterine device Mirena metFORMIN XR (GLUCOPHAGE-XR) 500 mg, Oral, Daily with evening meal, Do not crush, chew, or split. phentermine (ADIPEX-P) 37.5 mg, Oral, Daily before breakfast Allergies Allergen Reactions Hydrocodone-Acetaminophen Unknown PAST MEDICAL HISTORY: SOCIAL HISTORY SURGICAL HISTORY: Past Medical History: Diagnosis Date Anemia Anxiety BMI 29.0-29.9,adult Contraceptive device, intrauterine Depression screening Pseudoaneurysm (CMS/HCC) Thyroglossal duct cyst Well woman exam Social History Tobacco Use Smoking status: Former Types: Cigarettes Smokeless tobacco: Never Tobacco comments: Last smoked: <1 month Substance Use Topics Alcohol use: Yes Alcohol/week: 4.0 standard drinks of alcohol Types: 4 Standard drinks or equivalent per week Comment: caffeine: 1-2 cups per day coffee Drug use: Never Past Surgical History: Procedure Laterality Date DILATION AND CURETTAGE OF UTERUS MASS EXCISION 07/27/2017 midline neck OTHER SURGICAL HISTORY 05/2014 uterine aneurysm, foam REVIEW OF SYMPTOMS: Review of Systems Constitutional: Negative. HENT: Positive for postnasal drip and sneezing. Eyes: Negative. Respiratory: Negative. Negative for wheezing. Cardiovascular: Negative. Gastrointestinal: Negative. Genitourinary: Negative. Musculoskeletal: Negative. Skin: Negative. Neurological: Negative. Psychiatric/Behavioral: Negative. All other systems reviewed and are negative. Hematological: Negative. Endocrine: Negative. Allergic/Immunologic: Negative. OBJECTIVE: Vitals: 05/24/23 1622 BP: 120/68 Pulse: 88 Resp: 18 Temp: 98.6 F SpO2: 98% Physical Exam Vitals and nursing note reviewed. Constitutional: Appearance: Normal appearance. HENT: Head: Normocephalic and atraumatic. Right Ear: Tympanic membrane normal. Left Ear: Tympanic membrane normal. Nose: Nose normal. Mouth/Throat: Mouth: Mucous membranes are moist. Pharynx: Oropharynx is clear. Eyes: Pupils: Pupils are equal, round, and reactive to light. Cardiovascular: Rate and Rhythm: Normal rate and regular rhythm. Heart sounds: Normal heart sounds. Pulmonary: Effort: Pulmonary effort is normal. Breath sounds: Normal breath sounds. Abdominal: General: Bowel sounds are normal. Palpations: Abdomen is soft. Musculoskeletal: General: Normal range of motion. Cervical back: Normal range of motion. Skin: General: Skin is warm and dry. Neurological: General: No focal deficit present. Mental Status: She is alert. Psychiatric: Mood and Affect: Mood normal. ASSESSMENT AND PLAN: Assessment/Plan Diagnoses and all orders for this visit: Well adult exam - Glucose, fasting; Future - Lipid panel; Future Healthy diet and keep active. Annual eye and dental exam. screen labs, cancer screens and vaccines reviewed an updated as needed. Viral upper respiratory tract infection Discussed the viral process flu covid and strep are all negative. Consider EBV titers on if not improving No follow-ups on file. documented in this encounter [facility] Clinical Note 07-30-2022 Note Date & Type Note Facility 07-30-2022 Note OPERATIVE NOTE OPERATION DATE: 07/30/2022 PROCEDURE: LEEP procedure with top hat. PREOPERATIVE DIAGNOSIS: Cervical dysplasia. POSTOPERATIVE DIAGNOSIS: Cervical dysplasia. ANESTHESIA: General. SURGEON: José Garcia D.O. TRACK TEMPLATE MAKER: None. SPECIMEN: Endocervical tissue. FINDINGS: Abnormal cervical dysplasia at the 2, 4 and 9 o'clock positions. BLOOD LOSS: 5 mL. URINE OUTPUT: Yellow and clear. PROCEDURE: Patient was taken back to the Operating Room where she was given general anesthesia without difficulty. She was then placed in the dorsal lithotomy position. She was then prepped and draped in the normal sterile fashion. A weighted speculum was placed into the patient's vagina. The anterior lip of the cervix was identified and grasped with a single-tooth tenaculum. The patient's cervix was then copiously irrigated using vinegar. Then, a Lugol Solution was also placed onto the patient's cervix which demonstrated increased uptake of the Lugol solution at the 2 o'clock, 4 o'clock and 9 o'clock positions. At that time, the LEEP portion of the procedure was performed, including the 2 o'clock, 4 o'clock and 9 o'clock positions. The ectocervix was sent out to Pathology. The patient's cervix was then coagulated using suction cautery. Excellent hemostasis was assured. Monsel Solution was then placed onto the patient's cervix to help maintain adequate hemostasis. All instruments were removed from the patient's vagina. The anterior lip of the cervix demonstrated excellent hemostasis. The patient tolerated the procedure well. Sponge, lap, and needle counts were correct x 2. The patient was taken to Recovery Room in stable condition [facility] Procedure note 02-18-2022 Note Date & Type Note Facility 02-18-2022 Procedure note [facility] Evaluation note Note Date & Type Note Facility Evaluation note No assessment information availa [facility] Work Phone: Evaluation note Note Date & Type Note Facility Evaluation note Diagnosis Well adult exam- Primary Routine general medical examination at a health care facility Viral upper respiratory tract infection Acute upper respiratory infections of unspecified site documented in this encounter [facility] Evaluation note Note Date & Type Note Facility Evaluation note Diagnosis Encounter for weight management documented in this encounter [facility] History and physical note Note Date & Type Note Facility History and physical note Note Date/Time February 18, 2022 9 :51am [facility] [address] [place] [address] Gastroenterology H&P Signed Patient: Georgette Luna MR# : [id number] : 1990 Acct:[id number] Age/Sex: 31 / F Adm Date: 2 Loc: Room: Type: [facility] Attending Dr: Jayden Moreau MD Copies to: MD Abby Davenport MD~ Date of Service: 02/18/2022 HISTORY & PHYSICAL: Patient's history with special attention to the cardiovascular, pulmonary systems and the current problem was reviewed with the patient immediately prior to the procedure. Present medications and doses reviewed in the EMR. Allergies and pertinent laboratory tests were also reviewedat this time in the EMR. The physical examination, as below, was then performed. Indication, assessment and HPI: 31-year-old female presents for colonoscopy to evaluate rectal bleeding Family history of GI malignancy? No PHYSICAL EXAMINATION Mouth and Pharynx : Moist mucus membranes, normal dentition Cardiac: Regular rate, regular rhythm Pulmonary: Clear to auscultation bilaterally, no wheezing Neurological: Alert and oriented x3, no focal deficits noted Abdomen: Abdomen soft, non-tender REVIEW OF SYSTEMS Constitutional: Denies malaise, fevers Cardiovascular: Denies chest pain, palpitations Respiratory: Denies shortness of breath, wheezing Gastrointestinal: Per HPI Genitourinary: Denies dysuria, polyuria Musculoskeletal: Denies joint swelling, joint stiffness Neurological: Denies numbness, tingling Integumentary: Denies rashes, skin lesions Endocrine: Denies fatigue, weight loss Written informed consent obtained from the patient. Risks (including but not limited to perforation, infection, bloating, bleeding, need for emergent surgeryand loss of life), benefits and alternatives explained and questions answered. The patient verbalized understanding. Based on history patient is an appropriate candidate for the procedure. Jayden Moreau MD Documented By: Jayden Moreau MD 02/18/22 0950 Signed By: <Electronically signed by Jayden Moreau MD> 02/18/22 9489 [facility] Work Phone: Hospital Discharge instructions Note Date & Type Note Facility Hospital Discharge instructions Additional Instructions DISCHARGE INSTRUCTIONS FOR COLONOSCOPY WHAT TO EXPECT: - You may feel full, gassy or cramping after your procedure. In some cases, this may be from a few hours to a day. Walking may help relieve the discomfort. - If you have polyp(s) removed you may note some minor bloody discharge after your first bowel movements. - You should begin to recover from anesthesia within 1 hour of the procedure, however may feel groggy for the next 24 hours. DO's AND DON'Ts: - Call your doctor right away if you have a hard abdomen, severe pain, are passing lots of bright red blood or clots. - Call your doctor if you develop any rashes, hives or difficulty breathing. - Let your doctor know if you have not had a bowel movement by 3 days after your procedure. - If you take 81 mg aspirin for your heart it is safe to resume this medication. - If you take other blood thinner medications your doctor will instruct you when these can safely be resumed. - Do NOT drive for 24 hours. - Do NOT operate machinery such as power tools, [employer] mowers, [employer], sewing machines, etc. for 24 hours. - Avoid alcoholic beverages and drugs for allergies, nerves, or sleep. - Do NOT stay alone. Do NOT leave your child unattended. - Do NOT make important personal or business decisions or sign any legal documents. - Eat solid foods and drink liquids in smaller amounts than usual until normal appetite returns. If you should experience an upset stomach, liquids high in sugar content (soda, Chuck-Aid, non-acid juices) are recommended. - You can resume normal activities tomorrow. FOLLOW UP & RECOMMENDATIONS: - Follow-up with Dr. Moreau as needed - Notify the doctor if you have any problems. - Follow up with PCP. - Office number [phone]. [facility] Work Phone: Summary Purpose Family History No Family History Records Found Relationship Condition Age at Onset Recorded Date/T ivania grandparent Malignant neoplasm of colon Unknown Advance Directives No Advanced Directives Records Found Advance Directive Response Recorded Date/ Time Advance Directives No July 12, 2 018 5:44pm Chief Complaint and Reason for Visit Chief Complaint Blood in Stool Additional Source Comments INFORMATION SOURCE (unrecogn ized section and content) DATE CREATED AUTHOR 02/11/2022 [facility] Me dical Specialist DATE CREATED AUTHOR AUTHOR'S ORGANIZ ATION 02/23/2022 [facility] DATE CREATED AUTHOR AUTHOR'S ORGANIZ ATION 08/01/2022 [facility] DATE CREATED AUTHOR AUTHOR'S ORGANIZ ATION 08/09/2023 [facility] dical Specialists EPIC Care Teams (unrecognized sec tion and content) Team Status: Inactive Member Role Status Dates Jayden Moreau MD Attending Provider Active Abby Etienne MD Primary Care Provider Active Team Status: Active Member Role Status Dates Abby Etienne MD Primary Care Provider Active System Designer Relationship Specialty Start Date End Date Abby Etienne MD [address] [place] [address] PCP - General Family Medicine 10/07/22 Cat Salguero NP [address] [place] [address] PCP - [facility] 10/16/22 System Designer Relationship Specialty Start Date End Date Abby Etienne MD [address] [place] [address] PCP - [facility] 10/07/22 Cat Salguero NP [address] [place] [address] PCP - [facility] 10/16/22 Reason for Visit (unrecogniz ed section and content) Reason Comments Annual Exam Reason Comments Weight Management FOR RECORDS PERTAINING TO PATIENTS WHO ARE OR HAVE BEEN ENROLLED IN A CHEMICAL DEPENDENCY/SUBSTANCEABUSE PROGRAM, SOME INFORMATION MAY BE OMITTED. This clinical summary was aggregated from multiple sources. Caution should be exercised in using it in the provision of clinical care. This summary normalizes information from multiple sources, and as a consequence, information in this document may materially change the coding, format and clinical context of patient data. In addition, data may be omitted in some cases. CLINICAL DECISIONS SHOULD BE BASED ON THE PRIMARY CLINICAL RECORDS. [facility]. provides no warranty or guarantee of the accuracy or completeness of information in this document.
[2023-08-19 14:09] LABS: HPV Aptima Negative (Negative); Pap IG (Image Guided) Note (.)
== END 2023-08-15 21:17 | disposition home or self-care (01) ==
LOC: LAB 21:16
PROVIDERS: PCP Family Medicine; Visit Provider Obstetrics & Gynecology
DX: R87.619 Unspecified abnormal cytological findings in specimens from cervix uteri (principal)
CPT/HCPCS: G0145